=== PATIENT | male | born 1965 | race Caucasian/White ===

== ENCOUNTER 2023-04-23 16:11 | Emergency (ER) | payer BC, SELFPAY ==
[2023-04-23 16:20] VITALS: BP 121/82; PULSE 85; RESP 16; TEMP 36.9; O2SAT 98; BMI 28.5
--- NOTE | 2023-04-23 16:23 | ED_ITS ---
HPI - Allergic Reaction <KRISSY Perez - Last Filed: 04/23/23 16:43> General Chief complaint: Allergic Reaction Stated complaint: Rash on arm Time Seen by Provider: 04/23/23 16:23 Mode of arrival: Ambulatory History of Present Illness HPI narrative: This is a 57-year-old male presents emergency department with a large rash on his bilateral upper arms, trunk, and legs which he reports is from poison oak in his yd 6 days ago when he was cleaning up his yd. He states that he is had skin reactions to poison oak in the past with lots of swelling, crusting and itching and this is similar to previous episodes. He denies fever chills, states that his symptoms have not gotten much better over the course of the week. Related Data Previous Rx's Medication Instructions Recorded cephalexin 500 mg capsule 500 mg PO TID 7 days #21 caps 04/23/23 cetirizine 10 mg tablet 10 mg PO BEDTIME Poison oak 04/23/23 dermatitis #20 tabs mupirocin 2 % topical ointment 1 applic topical BID #22 grams 04/23/23 pramoxine-calamine 1 %-8 % lotion 1 applic topical TID PRN itching 04/23/23 (Calamine Medicated) #177 mL prednisone 20 mg tablet 60 mg PO DAILY #28 tabs 04/23/23 Allergies Allergy/AdvReac Type Severity Reaction Status Date / Time No Known Drug Allergies Allergy Verified 04/23/23 16:23 Review of Systems <KRISSY Perez - Last Filed: 04/23/23 16:43> Review of Systems ROS Unobtainable: All systems reviewed & are unremarkable except as noted in HPI and below Patient History <KRISSY Perez - Last Filed: 04/23/23 16:43> Social History Smoking Status: Never smoker Smoking Status: Never smoker alcohol intake frequency: 0-2 drinks per day Substance Use Type: does not use Exam <KRISSY Perez - Last Filed: 04/23/23 16:43> Narrative Exam Narrative: Reviewed vitals signs and nursing notes. General: Pleasant, sitting upright, in no acute distress, well groomed, afebrile HEENT: symmetrical facial expressions, moist mucous membranes, neck is supple MSK: moves all extremities, no weakness, normal tone, ambulatory without deficit Skin: brisk capillary refill, rash to the right aspect of his anterior torso which is approximally 1/3 of his chest, bilateral upper arms with bumpy erythematous rash, dry, crusted no discharge, same rash on bilateral lower extremities especially the lower legs and is spotted. Rashes erythematous, suspect possible bacterial superinfection, no crepitus. Neuro: clear speech and normal cognition, A&O x3, GCS 15, no focal motor or sensation deficits Initial Vital Signs Initial Vital Signs: Vital Signs Temperature 98.4 F 04/23/23 16:20 Pulse Rate 85 04/23/23 16:20 Respiratory Rate 16 04/23/23 16:20 Blood Pressure 121/82 04/23/23 16:20 Pulse Oximetry 98 04/23/23 16:20 Oxygen Delivery Method Room Air 04/23/23 16:20 <Demarcus Vidales DO - Last Filed: 04/29/23 01:53> Initial Vital Signs Initial Vital Signs: Vital Signs Temperature 98.4 F 04/23/23 16:20 Pulse Rate 85 04/23/23 16:20 Respiratory Rate 16 04/23/23 16:20 Blood Pressure 121/82 04/23/23 16:20 Pulse Oximetry 98 04/23/23 16:20 Oxygen Delivery Method Room Air 04/23/23 16:20 Course <KRISSY Perez - Last Filed: 04/23/23 16:43> Orders Ordered: Discontinued Medications Cephalexin HCl (Cephalexin 250 Mg Capsule) 500 mg PO NOW ONE Stop: 04/23/23 16:35 Last Admin: 04/23/23 16:41 Dose: 500 mg Documented By: SB Ketorolac Tromethamine (Ketorolac 10 Mg Tablet) 10 mg PO NOW ONE Stop: 04/23/23 16:29 Last Admin: 04/23/23 16:40 Dose: 10 mg Documented By: SB Prednisone (Prednisone 20 Mg Tablet) 60 mg PO NOW ONE Stop: 04/23/23 16:29 Last Admin: 04/23/23 16:40 Dose: 60 mg Documented By: SB Vital Signs Vital signs: Vital Signs - 8 hr 04/23/23 16:20 Temperature 98.4 F Pulse Rate 85 Respiratory Rate 16 Blood Pressure 121/82 Pulse Oximetry 98 Oxygen Delivery Method Room Air <Dmearcus Vidales DO - Last Filed: 04/29/23 01:53> Orders Ordered: Discontinued Medications Cephalexin HCl (Cephalexin 250 Mg Capsule) 500 mg PO NOW ONE Stop: 04/23/23 16:35 Last Admin: 04/23/23 16:41 Dose: 500 mg Documented By: SB Ketorolac Tromethamine (Ketorolac 10 Mg Tablet) 10 mg PO NOW ONE Stop: 04/23/23 16:29 Last Admin: 04/23/23 16:40 Dose: 10 mg Documented By: SB Prednisone (Prednisone 20 Mg Tablet) 60 mg PO NOW ONE Stop: 04/23/23 16:29 Last Admin: 04/23/23 16:40 Dose: 60 mg Documented By: SB Vital Signs Vital signs: Vital Signs - 8 hr 04/23/23 16:20 Temperature 98.4 F Pulse Rate 85 Respiratory Rate 16 Blood Pressure 121/82 Pulse Oximetry 98 Oxygen Delivery Method Room Air MDM - Allergic Reaction <KRISSY Perez - Last Filed: 04/23/23 16:43> MDM Narrative Medical decision making narrative: Chief Complaint: Rash due to poison oak Primary historian: Patient Multiple etiologies for patient's complaint considered including, but not limited to: Contact dermatitis due to poison oak, bacterial superinfection, cellulitis, foreign body, hypersensitive reaction/allergic reaction I have independently reviewed the patient's vital signs and nursing notes as well as prior records if available. Patient was treated with prednisone 60 mg, Toradol for pain, gave him prednisone times 15 days with a taper and calamine lotion with mupirocin ointment and cephalexin for bacterial superinfection as patient's rash is quite erythematous and raised, concerning for bacterial infection. Denies fever chills. Prescribed cetirizine for antihistamine. Social considerations that may affect disposition: none Questions are addressed and there is agreement with the plan and for follow-up. I consulted with the ED attending physician Dr. Vidales as needed for higher level of care considerations and they were available for discussion and recommendations regarding plan of care and diagnostic testing. Patient is appropriate for outpatient management. Discharge Plan Departure Patient Disposition: Home Clinical Impression: Contact dermatitis due to poison oak Instructions: DI for Poison [place] Allergy Activity Restrictions/Additional Instructions: *You have been diagnosed with poison allergy/contact dermatitis. I am sorry for your pain and this rash. Please use a pain pill as needed for your pain, okay to use calamine or other soothing type of topical, use the mupirocin ointment for bacterial superinfection. Please start taking the oral antibiotic and we has started you on a prednisone taper. Please take 60 mg each day for the next 5 days and then titrate down to 40 mg for 3 days, 20 mg for 3 days, and 10 mg for 4 days. I have you need some calamine lotion which may be helpful, mupirocin ointment which is antibiotic ointment to prevent worsening skin infection, and an oral antibiotic to prevent infection of this skin as well. Please take all these medications as prescribed, food and water helpful, sorry for your symptoms, poison oak is not your friend. *What to do: *Please continue to take your regular medications as directed. [ x] New medication prescriptions sent to your pharmacy: [[facility]] [ ] New medication written as a paper prescription [ ] No new medications given *Please call and schedule follow up with your primary care provider in 2-3 days, at least for an update. Let them know you were seen in the Emergency Department for the above problem. We will electronically transmit a record of today's note if your PCP or specialist is in our system. *If you do not have a primary care provider please contact [phone] to establish care with one of the [facility] primary care providers. *Return to the Emergency Department for worsening symptoms, inability to keep liquids down, fever greater than 101F, chills, or other concerning symptom. Prescriptions: New mupirocin 2 % ointment 1 applic topical BID Qty: 22 0RF cephalexin 500 mg capsule 500 mg PO TID 7 Days Qty: 21 0RF prednisone 20 mg tablet 60 mg PO DAILY Qty: 28 0RF Rx Instructions: Please take 60 mg of prednisone x5 days, 40 mg x4 days, 20 mg x3 days, and 10 mg for 4 days thereafter. Calamine Medicated 1-8 % lotion 1 applic topical TID PRN (Reason: itching) Qty: 177 0RF cetirizine 10 mg tablet 10 mg PO BEDTIME Qty: 20 0RF Stand Alone Forms: Patient Portal/API <Demarcus Vidales, - Last Filed: 04/29/23 01:53> Cosign ED Attending Roberta Attestation: I was immediately available in the department for consultation. Documentation has been reviewed. I agree with assessment and plan.
[2023-04-23] MEDS: KETOROLAC 10 MG TABLET PO (16:40)
[2023-04-23] MEDS: predniSONE 20 MG TABLET 60 MG PO (16:40)
[2023-04-23] MEDS: cephALEXin 250 MG CAPSULE 500 MG PO (16:41)
[2023-04-23 16:55] VITALS: BP 106/73; PULSE 77; RESP 20; O2SAT 98
== END 2023-04-23 16:58 | disposition home or self-care (01) ==
PROVIDERS: Emergency Provider Nurse Practitioner Critical Care Medicine
DX: L23.7 Allergic contact dermatitis due to plants, except food (principal)
CPT/HCPCS: 99283